=== PATIENT | female | born 2000 | race African-American/Black ===

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

== ENCOUNTER 2021-08-16 20:04 | Emergency (ER) | payer OTHER ==
[~2021-08-16] VITALS: Ht 165.1 cm; Wt 54.4 kg
[2021-08-16 20:49] VITALS: BP 113/62
[2021-08-16 20:57] LABS: BILIRUBIN Negative (Negative); BLOOD Negative (Negative); CLARITY Turbid (Clear); COLOR Yellow (Yellow); GLUCOSE Negative (Negative); KETONE Negative (Negative); LEUKO ESTERASE 2+ (Negative); NITRITE Negative (Negative); PH 7.5 (4.5-8.0); SPECIFIC GRAVITY 1.025 (1.001-1.030); UROBILINOGEN 0.2 E.U./dl (0.0-1.0)
[2021-08-16 21:06] LABS: RBC 0-2 rbc/hpf (0-2)
== END 2021-08-16 21:22 | disposition home or self-care (01) ==
LOC: ED 20:04
PROVIDERS: Physician Assistant
DX: Z20.2 Contact with and (suspected) exposure to infections with a predominantly sexual mode of transmission (principal)

== ENCOUNTER 2022-04-06 18:40 | Emergency (ER) | payer OTHER ==
[~2022-04-06] VITALS: Ht 165.1 cm; Wt 52.2 kg
[2022-04-06 19:00] VITALS: BP 125/91
[2022-04-06 19:40] LABS: BILIRUBIN Negative (Negative); BLOOD Negative (Negative); CLARITY Clear (Clear); COLOR Yellow (Yellow); GLUCOSE Negative (Negative); KETONE Negative (Negative); LEUKO ESTERASE Trace (Negative); NITRITE Negative (Negative); PH 7.5 (4.5-8.0)
[2022-04-06 19:53] LABS: BACTERIA 2+
== END 2022-04-06 20:14 | disposition home or self-care (01) ==
LOC: ED 18:40
PROVIDERS: Physician Assistant
DX: N91.2 Amenorrhea, unspecified (principal); Z88.6 Allergy status to analgesic agent

== ENCOUNTER 2022-10-26 06:31 | Emergency (ER) | payer OTHER ==
[~2022-10-26] VITALS: Ht 165.1 cm; Wt 53.1 kg
[2022-10-26 06:40] VITALS: BP 118/63
[2022-10-26 07:49] LABS: BILIRUBIN Negative (Negative); BLOOD Negative (Negative); CLARITY Clear (Clear); COLOR Yellow (Yellow); GLUCOSE Negative (Negative); KETONE Negative (Negative); LEUKO ESTERASE Negative (Negative); NITRITE Negative (Negative); PH 5.5 (4.5-8.0); UROBILINOGEN 0.2 E.U./dl (0.0-1.0)
== END 2022-10-26 08:20 | disposition home or self-care (01) ==
LOC: ED 06:31
PROVIDERS: Student in an Organized Health Care Education/Training Program
DX: Z20.2 Contact with and (suspected) exposure to infections with a predominantly sexual mode of transmission (principal); Z88.6 Allergy status to analgesic agent

== ENCOUNTER 2023-04-21 12:15 | Emergency (ER) | payer OTHER ==
[~2023-04-21] VITALS: Ht 165.1 cm; Wt 51.7 kg
[2023-04-21 12:34] VITALS: BP 99/66
[2023-04-21 12:49] LABS: BILIRUBIN Negative (Negative); BLOOD Negative (Negative); CLARITY Clear (Clear); COLOR Yellow (Yellow); GLUCOSE Negative (Negative); KETONE Negative (Negative); LEUKO ESTERASE Negative (Negative); NITRITE Negative (Negative); PH 5.5 (4.5-8.0); SPECIFIC GRAVITY 1.015 (1.001-1.030); UROBILINOGEN 0.2 E.U./dl (0.0-1.0)
[2023-04-21 13:01] LABS: BACTERIA TRACE; EPITHELIAL CELLS 0-2
[2023-04-21] MEDS ORDERED: DIFLUCAN150 MG PO (13:07)
== END 2023-04-21 13:14 | disposition home or self-care (01) ==
LOC: ED 12:15
PROVIDERS: Internal Medicine
DX: B37.31 Acute candidiasis of vulva and vagina (principal)

== ENCOUNTER 2023-12-31 20:36 | Emergency (ER) | payer SELFPAY ==
[~2023-12-31] VITALS: Ht 165.1 cm; Wt 50.8 kg
[~2023-12-31 20:36] MED LIST changes: +DIFLUCAN150 MG PO
[2023-12-31 20:41] VITALS: BP 111/92
[2023-12-31] MEDS ORDERED: AZITHROMYCIN 250 MG TAB PO ONE (21:00)
[2023-12-31 21:26] LABS: BASO % 0.5 % (0.0-1.0); EOS # 0.2 10*3/uL (0.0-0.4); EOS % 2.7 % (1.0-4.0); HEMATOCRIT 34.6 % (37.0-47.0); LYMPH # 2.6 10*3/uL (1.3-4.4); LYMPH % 39.5 % (27.0-41.0); MEAN CELL VOLUME 91.3 fl (81.0-99.0); MEAN CORPUSCULAR HGB 30.3 pg (27.0-31.0); MEAN CORPUSCULAR HGB CONC 33.2 g/dl (33.0-37.0); MEAN PLATELET VOLUME 10.8 fl (9.6-12.3); MONO # 0.6 10*3/uL (0.1-1.0); MONO % 9.5 % (3.0-9.0); NEUT # 3.2 10*3/uL (2.3-7.9); NEUT % 47.6 % (47.0-73.0); PLATELET COUNT AUTOMATED 190 10*3/uL (130-400); RED BLOOD COUNT 3.79 10*6/uL (4.10-5.10); RED CELL DISTRI WIDTH 11.9 % (0-14.5); WHITE BLOOD COUNT 6.7 10*3/uL (4.8-10.8)
[2023-12-31 21:43] LABS: ALKALINE PHOSPHATASE 35 U/L (46-116); BUN 11 mg/dl (9-23); CHLORIDE 109 mmol/L (98-107); LIPASE 61 U/L (12-53); POTASSIUM 3.9 mmol/L (3.4-5.1); SGPT/ALT 19 U/L (5-49); TOTAL PROTEIN 6.9 gm/dL (6.0-8.0)
[2023-12-31] MEDS ORDERED: Water, Sterile 10 ML VIAL ONE (21:44)
[2023-12-31 21:53] LABS: URINE AMPHETAMINES Negative (1000ng/ml); URINE BARBITURATES Negative (200ng/ml); URINE BENZODIAZEPINES Negative (200ng/ml); URINE CANNABINOIDS (THC) Positive (50ng/ml); URINE COCAINE Negative (300ng/ml); URINE METHADONE Negative (300ng/ml); URINE OPIATES Negative (300ng/ml); URINE PHENCYCLIDINE Negative (25ng/ml)
[2023-12-31] MEDS ORDERED: VISTARIL25 MG PO (22:04)
== END 2023-12-31 22:31 | disposition home or self-care (01) ==
LOC: ED 20:36
PROVIDERS: Internal Medicine
DX: Z20.2 Contact with and (suspected) exposure to infections with a predominantly sexual mode of transmission (principal); F41.9 Anxiety disorder, unspecified; R53.1 Weakness; F17.200 Nicotine dependence, unspecified, uncomplicated; Z88.8 Allergy status to other drugs, medicaments and biological substances

== ENCOUNTER 2024-04-21 17:53 | Emergency (ER) | payer SELFPAY ==
[~2024-04-21] VITALS: Ht 165.1 cm; Wt 48.5 kg
[~2024-04-21 17:53] MED LIST changes: +VISTARIL25 MG PO
[2024-04-21 18:32] VITALS: BP 99/74
[2024-04-21] MEDS ORDERED: VIBRAMYCIN100 MG PO (18:40)
[2024-04-21] MEDS ORDERED: Doxycycline Hyclate 100 MG CAP PO ONE (18:40)
== END 2024-04-21 18:57 | disposition home or self-care (01) ==
LOC: ED 17:53
DX: A64 Unspecified sexually transmitted disease (principal)